=== PATIENT | male | born 1975 | race Native Hawaiian/Other Pacific Islander ===

== ENCOUNTER 2020-10-13 13:45 | Emergency (ER) | payer OTHER ==
[~2020-10-13] VITALS: Ht 175.3 cm; Wt 85.3 kg
[2020-10-13 15:43] VITALS: BP 139/100; TEMP 98.4
== END 2020-10-13 15:44 | disposition home or self-care (01) ==
LOC: ED 13:45
DX: S46.812A Strain of other muscles, fascia and tendons at shoulder and upper arm level, left arm, initial encounter (principal); S86.812A Strain of other muscle(s) and tendon(s) at lower leg level, left leg, initial encounter; S96.812A Strain of other specified muscles and tendons at ankle and foot level, left foot, initial encounter; V49.40XA Driver injured in collision with unspecified motor vehicles in traffic accident, initial encounter; Y92.89 Other specified places as the place of occurrence of the external cause
CPT/HCPCS: 99283

== ENCOUNTER 2022-08-15 18:15 | Emergency (ER) | payer OTHER ==
[~2022-08-15] VITALS: Ht 175.3 cm; Wt 83.9 kg
[2022-08-15 18:15] VITALS: BP 119/89; TEMP 98
== END 2022-08-15 21:38 | disposition home or self-care (01) ==
LOC: ED 18:20
PROC: 0HQFXZZ Repair Right Hand Skin, External Approach (ICD-10-PCS; principal; 2022-08-15)
DX: S61.452A Open bite of left hand, initial encounter (principal); S61.451A Open bite of right hand, initial encounter; W54.0XXA Bitten by dog, initial encounter; S61.411A Laceration without foreign body of right hand, initial encounter; S61.432A Puncture wound without foreign body of left hand, initial encounter; S61.431A Puncture wound without foreign body of right hand, initial encounter; S71.131A Puncture wound without foreign body, right thigh, initial encounter
CPT/HCPCS: 96372; 99283; J0696; J1885; J3410